=== PATIENT | female | born 1990 | race Caucasian/White ===

== ENCOUNTER 2018-12-30 12:10 | Inpatient (IN) ==
[2018-12-30 13:20] LABS: BILIRUBIN URINE NEGATIVE (NEGATIVE); BLOOD URINE NEGATIVE (NEGATIVE); CLARITY CLEAR (CLEAR); COLOR YELLOW; GLUCOSE URINE NEGATIVE (NEGATIVE); KETONE URINE NEGATIVE (NEGATIVE); LEUKOCYTES URINE NEGATIVE (NEGATIVE); NITRITE URINE NEGATIVE (NEGATIVE); PROTEIN URINE NEGATIVE (NEGATIVE); SP GRAVITY URINE 1.015; UROBILINOGEN URINE NORMAL
[2018-12-30 13:21] LABS: URINE BACTERIA 2+ /HFP; URINE CAST NONE SEEN /LPF; URINE CRYSTAL NONE SEEN /HPF; URINE EPITHELIAL CELLS >10 /HPF (<10); URINE RBC <10 /HPF (<10); URINE SOURCE CLEAN CATCH; URINE WBC <10 /HPF (<10); URINE YEAST NONE SEEN /HPF
[2018-12-30 13:26] LABS: UR AMPHETAMINES QUAL NONE DETECTED (NONE DETECT); UR BARBITUATES QUAL NONE DETECTED (NONE DETECT); UR BENZODIAZEPIN QUAL NONE DETECTED (NONE DETECT); UR CANNABINOIDS QUAL NONE DETECTED (NONE DETECT); UR COCAINE QUAL NONE DETECTED (NONE DETECT); UR METHADONE QUAL NONE DETECTED (NONE DETECT); UR METHAMPHETAMINE QUAL NONE DETECTED (NONE DETECT); UR OPIATES QUAL NONE DETECTED (NONE DETECT); UR OXYCODONE QUAL PRESUMPTIVE POSITIVE (NONE DETECT); UR PCP QUAL NONE DETECTED (NONE DETECT); UR PROPOXYPHENE QUAL NONE DETECTED (NONE DETECT); UR TCA QUAL NONE DETECTED (NONE DETECT)
[2018-12-30 13:39] LABS: BASO# 0.02 X1000 (0.0-0.2); BASO% 0.1 % (0.0-0.8); EOS# 0.07 X1000 (0.0-0.7); EOS% 0.5 % (0.0-10.0); HEMATOCRIT 28.2 % (37.0-47.0); HEMOGLOBIN 8.1 g/dL (12.0-16.0); IMM GRAN# 0.03 X1000 (0.0-0.04); IMM GRAN% 0.2 % (0.0-0.5); LYMPH# 1.19 X1000 (1.2-3.4); MCH 22.1 PG (27-31); MCHC 28.7 g/dL (33-37); MONO# 0.88 X1000 (0.11-0.59); MONO% 5.9 % (1.7-9.3); MPV 9.4 FL (7.4-10.4); NEUT# 12.71 X1000 (1.4-6.5); NEUT% 85.3 % (42.2-75.2); PLT 383 X1000 (130-400); RBC 3.66 XMIL (4.2-5.4); RDW 14.2 % (11.5-14.5)
[2018-12-30 13:46] LABS: INR 1.06; PROTIME 14.3 Seconds (11.0-16.0)
[2018-12-30 13:47] LABS: PTT 35.8 Seconds (22.3-41.8)
--- NOTE | 2018-12-30 13:53 | Diag Imaging Result Doc PS360 ---
EXAM: CHEST-1 VIEW HISTORY: sepsis alert TECHNIQUE: Single view. COMPARISON: 09/22/2010 FINDINGS: The cardiomediastinal silhouette is within normal limits. The pulmonary vasculature is not congested. No infiltrate, effusion, or pneumothorax is appreciated. IMPRESSION: No acute cardiopulmonary abnormality is identified. Electronically signed by Prudence Kan 12/30/2018 1:51 PM
[2018-12-30 14:06] LABS: AGAP 14; ALBUMIN 3.6 g/dL (3.5-5.0); ALKALINE PHOSPHATASE 69 U/L (32-104); BUN 7 mg/dL (8-22); CHLORIDE 100 mmol/L (98-107); CK PROFILE 23 U/L (24-173); COSMO 272; CREATININE 0.4 mg/dL (0.5-0.9); ESTIMATED GFR > 60; GLUCOSE 102 mg/dL (70-104); GOT 9 U/L (10-30); GPT 8 U/L (10-36); SODIUM 137 mmol/L (136-145); TCO2 24 mmol/L (25-35); TOTAL PROTEIN 7.2 g/dL (6.3-8.3)
[2018-12-30 14:22] LABS: BANDS 1 % (0-1); LYMPHS 12 % (21-51); MONO 2 % (1-9); SEGS 85 % (42-75)
[2018-12-30 14:23] LABS: ANISOCYTOSIS 1+; MICROCYTOSIS 1+
[2018-12-30] MEDS ORDERED: VANCOMYCIN IV PER PHARMACY MISC SCH (15:00)
[2018-12-30] MEDS ORDERED: NS 1,000 ML IV SCH (15:00)
[2018-12-30] MEDS ORDERED: ZOSYN 3.375 GM in NS 50 ML IV SCH (15:00)
[2018-12-30] MEDS ORDERED: XYLOCAINE-MPF 1% INJ ONE (15:09)
[2018-12-30] MEDS ORDERED: XYLOCAINE-MPF 1% 5 ML ONE (15:09)
[2018-12-30] MEDS ORDERED: NORCO-10 PO ONE (15:46)
--- NOTE | 2018-12-30 15:49 | PROVIDER DOCUMENTATION ---
This chart was entered by Patricia aPvon Scribe, acting as scribe for Elliott Cano MD. HPI-Rash/Wound/ReCheck - General Chief Complaint: Sores/Lesions Stated Complaint: SORES ALL OVER BODY Time Seen by Provider: 12/30/18 12:41 Source: patient, family (mother) Allergies/Adverse Reactions: Allergies Allergy/AdvReac Type Severity Reaction Status Date / Time morphine Allergy Severe SWELLING Verified 09/10/13 00:09 of face, can't breathe Home Medications: Home Medication List Medication Instructions Recorded Confirmed Last Taken Type Clonazepam 1 mg PO TID 11/20/13 01/18/14 11/20/13 14:00 History Clindamycin [Cleocin] 150 mg PO Q6HR #20 capsule 01/18/14 Unknown Rx Doxycycline 100 mg BID 01/18/14 01/18/14 Unknown History Hydrocodone/Acetaminophen [[place] 1 each PO Q6H PRN #20 tablet 01/18/14 Unknown Rx 5-325 Tablet] - History of Present Illness-Dermatology Nature of Presenting Problem: 28 yowf presents to the ed with her mother. pt has hx of heroin addiction but has been clean for 2 years. pt has multiple sores on BUE and back. pt has swelling noted to BUE. pt sts wounds starts as a pimple then pt sts she pokes wound with a needle to drain and then wounds become infected. pt as had 100lb weight loss in 2 years and is ill appearing Location: reports: upper extremity Quality: reports: painful Severity: reports: moderate Onset/Duration: reports: unsure Timing: reports: still present, getting worse Context/Associated Symptoms: reports: lesion, tender area Exposure: reports: unknown cause Modifying Factors: worse with: scratching, other (picking) Locality of Occurance: Home Similar Symptoms Previously?: Yes Recently seen or treated by another doctor?: No Review of Systems - Adult - REVIEW OF SYSTEMS - ADULT Constitutional: reports: see HPI, weight loss. denies: chills, fever Eyes: reports: no symptoms reported Ears, Nose, Mouth & Throat: reports: no symptoms reported Cardiovascular: denies: chest pain, palpitations Respiratory: denies: cough, shortness of breath, wheezing Gastrointestinal: reports: see HPI, poor appetite. denies: diarrhea, nausea, vomiting Genitourinary: reports: no symptoms reported Musculoskeletal: reports: no symptoms reported Integumentary: reports: see HPI, hair loss, skin sores/ulcer Neurological: reports: no symptoms reported Psychiatric: reports: see HPI, anxiety, depression, insomnia Endocrine: reports: no symptoms reported Hematologic/Lymphatic: reports: no symptoms reported Allergic/Immunologic: reports: no symptoms reported All Other Systems: Reviewed and Negative Past History - Adult - PAST MEDICAL HISTORY-ADULT Review of Records: reports: Old Records Reviewed, Nursing Assessment Review, Medications Reviewed, Social history reviewed & non-contributory. Major Childhood Illnesses: reports: denies history Cardiovascular: reports: denies history Respiratory: reports: denies history Gastrointestinal: reports: GERD Obstetrical/Gynecological: reports: denies history Genitourinary: reports: kidney disease (Poss: uretheral reflux) Musculoskeletal: reports: denies history Hand Dominance: Right Handed Neurological: reports: denies history Psychiatric: reports: anxiety, depression Endocrine/Immune: reports: denies history Other Conditions: reports: denies history - PRIOR SURGERIES/PROCEDURES Surgical/Procedure History: reports: - IMMUNIZATION STATUS Childhood Immunizations: UTD Flu Vaccine: See Nurse Assessment - FAMILY HISTORY Family History: reviewed, not pertinent - SOCIAL HISTORY Smoking: quit less than 1 year Substance Use: none presently/history of abuse (heroin) Living Situation: family Physical Exam-General - PHYSICAL EXAM-ADULT Initial Vital Signs Reviewed: Yes - CONSTITUTIONAL General Appearance: alert, mild distress, thin, anxious. negative: appears well (ill appearing) - EYES Eyes: PERRL/EOMI, pale conjunctivae - HEAD, EARS, NOSE, MOUTH & THROAT HENMT: dental decay. negative: moist mucous membranes (dry oral and dry lips) - NECK Neck: non-tender, full range of motion, normal inspection - RESPIRATORY Respiratory: chest non-tender, lungs clear, normal breath sounds - CARDIOVASCULAR Cardiovascular: normal peripheral pulses, tachycardia (116) - CHEST (BREASTS) Chest/Breast: deferred - GASTROINTESTINAL (ABDOMEN) Abdominal Exam: normal bowel sounds, non tender, soft - GENITOURINARY Female Genitalia/Pelvic Exam: deferred Rectal Exam: deferred Hemoccult Exam: deferred - LYMPHATIC Lymphatic: no adenopathy - MUSCULOSKELETAL Back Exam: no CVA tenderness, no vertebral tenderness, other (redness noted to upper back on spine) Extremity: normal range of motion, normal capillary refill, pelvis stable, swelling (BUE with multiple lesions and redness from picking sores). negative: normal inspection - SKIN Integumentary: warm/dry, erythema (seen around lesions), pallor, swelling (BUE), tenderness, warm (lesions), other (lesions) - PSYCHIATRIC Psych/Mental Status: oriented x 3, anxious, tearful Progress - PLAN OF CARE/RESULTS Progress/Plan/Lab Results: Vital Signs - 8 hr 12/30/18 12:32 12/30/18 15:04 12/30/18 15:38 Temperature 98 F 100.1 F H Pulse Rate 116 H 86 115 H Respiratory Rate 22 20 18 Blood Pressure 146/78 108/64 O2 Sat by Pulse Oximetry 100 98 96 Bedside Urine ED: Urine Bedside Start: 12/30/18 12:54 Freq: ORDERED Status: Active Protocol: Activity Type Activity Date Activity User E-Sign Co-Sign Detail Recorded Client Recorded Date Recorded By Document 12/30/18 12:55 [id number] 12/30/18 12:55 [id number] 12/30/18 12:55 Point of Care [Bedside Point of Care] -Lot # [id number] - Results Negative -Control Line Visible? Yes Laboratory Results - last 24 hr 12/30/18 12/30/18 12/30/18 12:54 12:54 13:20 WBC 14.90 H RBC 3.66 L Hgb 8.1 L Hct 28.2 L MCV 77.0 L MCH 22.1 L MCHC 28.7 L RDW Std Deviation 14.2 Plt Count 383 MPV 9.4 Immature Gran % (Auto) 0.2 Neut % (Auto) 85.3 H Lymph % (Auto) 8.0 L [place] % (Auto) 5.9 Eos % (Auto) 0.5 Baso % (Auto) 0.1 Immature Gran # (Auto) 0.03 Neut # (Auto) 12.71 H Lymph # (Auto) 1.19 L [place] # (Auto) 0.88 H Eos # (Auto) 0.07 Baso # (Auto) 0.02 Segmented Neutrophils 85 H Band Neutrophils 1 Lymphocytes 12 L Monocytes 2 Anisocytosis 1+ Microcytosis 1+ PT INR PTT (Actin FS) Sodium Potassium Chloride Carbon Dioxide Anion Gap BUN Creatinine Estimated GFR/1.73 m2 BUN/Creatinine Ratio Glucose Calculated Osmolality Calcium Total Bilirubin AST ALT Alkaline Phosphatase Creatine Kinase Troponin T Total Protein Albumin Globulin Albumin/Globulin Ratio Plasma Lactate Urine Source CLEAN CATCH Urine Color YELLOW Urine Clarity CLEAR Urine pH 7.0 Ur Specific [place] 1.015 Urine Protein NEGATIVE Urine Ketones NEGATIVE Urine Blood NEGATIVE Urine Nitrite NEGATIVE Urine Bilirubin NEGATIVE Urine Urobilinogen NORMAL Urine Microscopic RBC <10 Urine WBC NEGATIVE Urine Microscopic WBC <10 Ur Epithelial Cells >10 A Urine Crystals NONE SEEN Urine Bacteria 2+ Urine Casts NONE SEEN Urine Yeast NONE SEEN Urine Glucose NEGATIVE Urine Opiates Screen NONE DETECTED Ur Oxycodone Screen PRESUMPTIVE POSITIVE A Urine Methadone Screen NONE DETECTED U Propoxyphene Qual NONE DETECTED Ur Barbituates Screen NONE DETECTED Ur Tricyclics Screen NONE DETECTED Ur Phencyclidine Scrn NONE DETECTED Ur Amphetamines Screen NONE DETECTED U Methamphetamines Scrn NONE DETECTED U Benzodiazepines Scrn NONE DETECTED Urine Cocaine Screen NONE DETECTED U Cannabinoids Screen NONE DETECTED 12/30/18 12/30/18 12/30/18 13:20 13:20 13:20 WBC RBC Hgb Hct MCV MCH MCHC RDW Std Deviation Plt Count MPV Immature Gran % (Auto) Neut % (Auto) Lymph % (Auto) [place] % (Auto) Eos % (Auto) Baso % (Auto) Immature Gran # (Auto) Neut # (Auto) Lymph # (Auto) [place] # (Auto) Eos # (Auto) Baso # (Auto) Segmented Neutrophils Band Neutrophils Lymphocytes Monocytes Anisocytosis Microcytosis PT 14.3 INR 1.06 PTT (Actin FS) 35.8 Sodium 137 Potassium 4.0 Chloride 100 Carbon Dioxide 24 L Anion Gap 14 BUN 7 L Creatinine 0.4 L Estimated GFR/1.73 m2 > 60 BUN/Creatinine Ratio 18 Glucose 102 Calculated Osmolality 272 Calcium 9.0 Total Bilirubin 0.30 AST 9 L ALT 8 L Alkaline Phosphatase 69 Creatine Kinase 23 L Troponin T Total Protein 7.2 Albumin 3.6 Globulin 4.0 Albumin/Globulin Ratio 1.0 Plasma Lactate 1.0 Urine Source Urine Color Urine Clarity Urine pH Ur Specific [place] Urine Protein Urine Ketones Urine Blood Urine Nitrite Urine Bilirubin Urine Urobilinogen Urine Microscopic RBC Urine WBC Urine Microscopic WBC Ur Epithelial Cells Urine Crystals Urine Bacteria Urine Casts Urine Yeast Urine Glucose Urine Opiates Screen Ur Oxycodone Screen Urine Methadone Screen U Propoxyphene Qual Ur Barbituates Screen Ur Tricyclics Screen Ur Phencyclidine Scrn Ur Amphetamines Screen U Methamphetamines Scrn U Benzodiazepines Scrn Urine Cocaine Screen U Cannabinoids Screen 12/30/18 13:20 WBC RBC Hgb Hct MCV MCH MCHC RDW Std Deviation Plt Count MPV Immature Gran % (Auto) Neut % (Auto) Lymph % (Auto) [place] % (Auto) Eos % (Auto) Baso % (Auto) Immature Gran # (Auto) Neut # (Auto) Lymph # (Auto) [place] # (Auto) Eos # (Auto) Baso # (Auto) Segmented Neutrophils Band Neutrophils Lymphocytes Monocytes Anisocytosis Microcytosis PT INR PTT (Actin FS) Sodium Potassium Chloride Carbon Dioxide Anion Gap BUN Creatinine Estimated GFR/1.73 m2 BUN/Creatinine Ratio Glucose Calculated Osmolality Calcium Total Bilirubin AST ALT Alkaline Phosphatase Creatine Kinase Troponin T < 0.010 Total Protein Albumin Globulin Albumin/Globulin Ratio Plasma Lactate Urine Source Urine Color Urine Clarity Urine pH Ur Specific [place] Urine Protein Urine Ketones Urine Blood Urine Nitrite Urine Bilirubin Urine Urobilinogen Urine Microscopic RBC Urine WBC Urine Microscopic WBC Ur Epithelial Cells Urine Crystals Urine Bacteria Urine Casts Urine Yeast Urine Glucose Urine Opiates Screen Ur Oxycodone Screen Urine Methadone Screen U Propoxyphene Qual Ur Barbituates Screen Ur Tricyclics Screen Ur Phencyclidine Scrn Ur Amphetamines Screen U Methamphetamines Scrn U Benzodiazepines Scrn Urine Cocaine Screen U Cannabinoids Screen Orders Category Date Time Status Admit - [facility] Routine [id number] 12/30/18 14:58 Active Activity - Up with Assistance ORDERED Care 12/30/18 14:58 Active Cardiac Monitoring DIRECTED Care 12/30/18 12:39 Completed ED: Urine Bedside ORDERED Care 12/30/18 12:54 Active IV Insertion ORDERED Care 12/30/18 12:39 Completed Intake and Output-Strict ORDERED Care 12/30/18 14:58 Active Notify MD of + Sepsis Screen NOW Care 12/30/18 12:39 Completed Notify Physician As Ordered Care 12/30/18 12:39 Completed Vital Signs Order Q 8-HR ASSESS Care 12/30/18 14:58 Active Z-Document. for Tele Applied ORDERED Care 12/30/18 14:59 Active Regular Diet Diet 12/30/18 14:59 Active CHEST-1 VIEW [RAD] Stat Exams 12/30/18 12:39 Completed BASIC METABOLIC PANEL [CHEM] Routine Lab 12/31/18 06:00 Ordered BLOOD CULTURE [BLDCUL] Stat Lab 12/30/18 12:49 Ordered CBC WITH DIFF [HEME] Routine Lab 12/31/18 06:00 Ordered CBC WITH DIFF [HEME] Stat Lab 12/30/18 13:20 Completed CK PROFILE [SP CHEM] Stat Lab 12/30/18 13:20 Completed COMPREHENSIVE METABOLIC PANEL [CHEM] Stat Lab 12/30/18 13:20 Completed LACTATE, PLASMA [CHEM] Lab 12/30/18 15:45 Uncollected LACTATE, PLASMA [CHEM] Lab 12/30/18 18:45 Uncollected LACTATE, PLASMA [CHEM] Q3H Lab 12/30/18 13:20 Completed PROTIME WITH INR [COAG] Stat Lab 12/30/18 13:20 Completed PTT [COAG] Stat Lab 12/30/18 13:20 Completed TROPONIN T Stat Lab 12/30/18 13:[address] W/POSS RFLX CULT [URINALYSIS] Stat Lab 12/30/18 12:54 Completed URINE CULTURE [RM] Routine Lab 12/30/18 13:22 Ordered URINE DRUG SCREEN PL Stat Lab 12/30/18 12:54 Completed WOUND CULTURE INC GRAM STAIN [RM] Routine Lab 12/30/18 15:24 Ordered 0.9% Sodium Chloride Inj [Ns] 1,000 ml Med 12/30/18 15:00 Active IV 75 mls/hr Lidocaine 1% Pf [Xylocaine-Mpf 1%] Med 12/30/18 15:09 Discontinued 5 ml INJ NOW ONE Lidocaine 1% Pf [Xylocaine-Mpf 1%] 5 ml Med 12/30/18 15:09 Discontinued .ROUTE As directed Omeprazole [Prilosec] Med 12/31/18 07:00 Active 40 mg PO DAILY@0700 Pharmacy Order [Vancomycin IV Per Pharmacy] Med 12/30/18 15:00 Active 1 each MISC DIRECTED Piperacillin/Tazobactam [Zosyn] 3.375 gm Med 12/30/18 15:00 Active 0.9% Sodium Chloride Inj [Ns] 50 ml IV Q6H Vancomycin 1,250 mg Med 12/31/18 05:00 Active 0.9% Sodium Chloride Inj [Ns] 250 ml IV Q12H Vancomycin 1,500 mg Med 12/30/18 16:30 Active 0.9% Sodium Chloride Inj [Ns] 250 ml IV ONCE Oxygen Device Stat Oth 12/30/18 12:39 Active Telemetry [OM.EQ] Routine Oth 12/30/18 14:58 Active Result Diagrams: 12/30/18 13:20 12/30/18 13:20 - REASSESSMENT Reassessment #1 Time Reassessed: 15:04 Status: unchanged - XRAY 1 XRAY: Bilateral XRAY Study: Chest Impression: See EMR Report (EXAM: CHEST-1 VIEW HISTORY: sepsis alert TECHNIQUE: Single view. COMPARISON: 09/22/2010 FINDINGS: The cardiomediastinal silhouette is within normal limits. The pulmonary vasculature is not congested. No infiltrate, effusion, or pneumothorax is appreciated. IMPRESSION: No acute cardiopulmonary abnormality is identified. Electronically signed by Prudence Kan 12/30/2018 1:51 PM 12/30/18 1351 Interpreting Physician: Prudence Kan MD Dictated Date/Time: 12/30/18 1350 cc: Elliott Cano MD; None,PCP) - CONSULTS/PCP/HOSPITALIST Notification #1 *Consult/PCP/Hospitalist*: dr costa hospitalist Time Discussed: 15:04 Reason/Comments: dr costa is at bedside Consult Disposition: Admit Procedures - INCISION & DRAINAGE Site: dorsum rt wrist Prepped with: Hibiclens Blade Size: needle lancet Packing placed?: No Sterile Dressing Applied?: Yes Drainage: Small Amount (5cc pus) Departure - Departure Date of Disposition Decision: 12/30/18 Time of Disposition Decision: 15:05 DIAGNOSIS: Protein-calorie malnutrition, moderate, Direct Care Worker's nodules Disposition: ADMITTED INPATIENT 09 Certified Medical Emergency: Emergent Condition: Stable Referrals and Follow-Ups: None,PCP [Primary Care Provider] - - Critical Care Note This patient required my direct & personal management of CC.: Yes Total Time (mins): 36 Critical Care Statement: This patient required my direct personal management to treat or rule out processes, the absence of which, could potentiallly result in sudden, clinically significant life or limb threatening deterioration. Attestation - Physician/ TERE Attestation Patient care was provided by Advanced Practice Provider:: No The physician spent face to face time with patient:: Yes Advanced Practice Provider documentation review:: Supervising physician onsite and consulted in the evaluation and care of this patient. The physician did have a face to face encounter with the patient. This chart was documented by the indicated scribe, (Patricia Pavon Scribe) and accurately reflects the services I performed and decisions made by me, Elliott Cano MD, as attested by the provider's signature.
[2018-12-30] MEDS ORDERED: VANCOMYCIN 1,500 MG in NS 250 ML IV ONE (16:30)
--- NOTE | 2018-12-30 17:12 | HISTORY AND PHYSICAL ---
CHIEF COMPLAINT: Weight loss, lower extremity edema and abscesses noted to bilateral arms and right hand. Painful lesions to arms. HISTORY OF PRESENT ILLNESS: This is a 28-year-old female with a prior history of IV drug abuse with heroin as her drug of choice, chronic skin picking, who presents to the emergency room with her mother complaining of multiple lesions to bilateral arms, her right hand. The patient denies any recent IV drug use. The patient and mother both state that the patient has picked at her skin since she was a young child and the mother has noticed that she has been picking at these areas to bilateral arms over the last two weeks with the area becoming edematous and red and warm over the last three to four days. She denies any fevers or chills. She denies any drainage from these areas. PAST MEDICAL HISTORY: IV drug abuse. Ureter reflux. PAST SURGICAL HISTORY: . SOCIAL HISTORY: She denies any recent IV drug use. She states it has been greater than three years. She denies any alcohol use. She does smoke about a pack a day. ALLERGIES: Morphine, which causes swelling of the face and cannot breathe. HOME MEDICATIONS: None. REVIEW OF SYSTEMS: Discussed with the patient with pertinent positives stated in the HPI. She denied any syncope, dizziness, chest pain, palpitations, any cough, fever, chills, night sweats, any nausea, vomiting, diarrhea, constipation, black or bloody vomitus or stools, any hematuria, dysuria, frequency, urgency. PHYSICAL EXAMINATION: GENERAL: This is a 28-year-old female who is lying on the stretcher in the emergency room in no distress. VITAL SIGNS: Blood pressure is 114/78 with a heart rate of 100. Respirations are 20. Temperature is 98 degrees with room air saturations 100%. EYES: Pupils equal, round, react to light. EOMs are intact. Sclerae are anicteric. HEENT: Head is normocephalic, atraumatic. Mucous membranes are moist. NECK: Supple with trachea midline. CARDIOVASCULAR: Regular rate and rhythm. S1 and S2 are appreciated. No murmur. PULMONARY: Breath sounds are clear with no increased work of breathing noted. Chest rises and falls symmetrically with respiration. Chest wall is nontender to palpation. GASTROINTESTINAL: Abdomen is soft, nontender, nondistended with bowel sounds in all four quadrants. GENITOURINARY: No CVA nor suprapubic tenderness. NEUROLOGIC: She is alert and oriented x3. SKIN: Warm and dry with nodules noted to both arms and right hand that are erythematous and warm. LABS: WBC is 14.9 with hemoglobin 8.1, hematocrit 28.2, and platelets 383,000. Sodium 137, potassium 4, BUN 7, creatinine 0.4 with a glucose of 102. Urinalysis is essentially negative. Urine drug screen is presumptive positive for oxycodone. MICROBIOLOGY: Blood cultures are pending. Urine culture is pending. ASSESSMENT AND PLAN: 1. Abscesses to bilateral arms. 2. History of intravenous drug abuse. 3. Moderate protein-calorie malnutrition. 4. Leukocytosis. 5. Anemia. The patient will be admitted to the hospital. She will be placed on telemetry. We will continue with IV hydration and vancomycin dosed per pharmacy and Zosyn. Check a CBC and a CMP in the morning. She underwent I and D in the emergency room. We will monitor for culture results and further antibiotics will be culture driven. Further treatments pending hospital course. Patient was seen with Dr. Mayes and plan was discussed. Dictated by MYLES Perez for Pierre Mayes MD cc: MYLES Perez MD
[2018-12-30] MEDS ORDERED: FLU VACCINE IM ONE (18:59)
--- NOTE | 2018-12-30 19:30 | PROGRESS NOTE ---
DATE: 12/30/2018 SUBJECTIVE/PLAN: The patient presented to the hospital with multiple abscesses on her bilateral upper extremities. She does have a known history of heroin use and abuse, but states she has not been using over the last several years. Bilateral arms are swollen, erythematous, and certainly look like injection site reactions. We are going to attempt to culture one, place her on antibiotics, and will follow. cc: Pierre Mayes MD
[2018-12-31] MEDS ORDERED: VANCOMYCIN 1,250 MG in NS 250 ML IV SCH (05:00)
[2018-12-31] MEDS ORDERED: PRILOSEC PO SCH (07:00)
[2018-12-31] MEDS ORDERED: ZOFRAN IV PRN (08:15)
[2018-12-31] MEDS ORDERED: VANCOMYCIN IV PER PHARMACY MISC SCH (08:15)
[2018-12-31] MEDS ORDERED: SEROQUEL PO PRN (08:15)
[2018-12-31] MEDS ORDERED: TYLENOL PO PRN (08:15)
[2018-12-31 09:15] LABS: BASO# 0.01 X1000 (0.0-0.2); BASO% 0.1 % (0.0-0.8); EOS# 0.02 X1000 (0.0-0.7); EOS% 0.1 % (0.0-10.0); HEMATOCRIT 31.7 % (37.0-47.0); HEMOGLOBIN 9.3 g/dL (12.0-16.0); IMM GRAN# 0.05 X1000 (0.0-0.04); IMM GRAN% 0.4 % (0.0-0.5); LYMPH# 1.23 X1000 (1.2-3.4); LYMPH% 8.6 % (20.5-51.1); MCH 22.2 PG (27-31); MCHC 29.3 g/dL (33-37); MCV 75.8 FL (81-99); MONO# 0.51 X1000 (0.11-0.59); MONO% 3.6 % (1.7-9.3); MPV 9.8 FL (7.4-10.4); NEUT# 12.46 X1000 (1.4-6.5); NEUT% 87.2 % (42.2-75.2); PLT 452 X1000 (130-400); RBC 4.18 XMIL (4.2-5.4); RDW 14.5 % (11.5-14.5); WBC 14.28 X1000 (4.8-10.8)
[2018-12-31 09:48] LABS: AGAP 12; BUN 11 mg/dL (8-22); CALCIUM 9.3 mg/dL (8.8-10.2); CHLORIDE 104 mmol/L (98-107); COSMO 283; CREATININE 0.4 mg/dL (0.5-0.9); ESTIMATED GFR > 60; GLUCOSE 143 mg/dL (70-104); POTASSIUM 3.7 mmol/L (3.5-5.1); SODIUM 141 mmol/L (136-145); TCO2 24 mmol/L (25-35)
[2018-12-31] MEDS: ZOSYN 3.375 GM in NS 50 ML IV SCH ×2 (10:21→18:23)
[2018-12-31] MEDS: VANCOMYCIN 1,250 MG in NS 250 ML IV SCH ×2 (10:22→20:07)
[2018-12-31 11:14] LABS: LYMPHS 15 % (21-51); MONO 3 % (1-9); SEGS 82 % (42-75)
[2018-12-31] MEDS: NORCO-5 PO PRN ×2 (16:12→20:06)
--- NOTE | 2018-12-31 19:59 | PROGRESS NOTE ---
DATE: 12/31/2018 SUBJECTIVE: Patient with no new complaints although she states that she wants to go home. PHYSICAL EXAMINATION: Temp 98.4, pulse 94, respiratory rate 18, BP 143/50.General: Patient is awake. He is in no respiratory distress. HEENT: Normocephalic. Neck: Supple. Cardiovascular: Regular rate. Chest: Clear. Abdomen: Soft, nondistended. Extremities: Moves all extremities. Skin: She has multiple abscesses on the bilateral upper extremities as well as swelling of her bilateral hands. ASSESSMENT: 1. Cellulitis with abscess. 2. History of IV drug abuse. 3. Leukocytosis. 4. Anemia. PLAN: We will continue antibiotics until her culture returns and then we can adjust from there. Discussed with patient that she will likely be in the hospital for 2 or 3 more days. cc: Pierre Mayes MD MTDD
[2019-01-01] MEDS: NORCO-5 PO PRN ×5 (01:25→19:36)
[2019-01-01] MEDS: ZOSYN 3.375 GM in NS 50 ML IV SCH ×4 (01:27→19:39)
[2019-01-01] MEDS: VANCOMYCIN 1,250 MG in NS 250 ML IV SCH (09:52)
[2019-01-01 10:12] LABS: HEMATOCRIT 30.7 % (37.0-47.0); MCH 22.4 PG (27-31); MCHC 29.3 g/dL (33-37); MCV 76.4 FL (81-99); MPV 9.5 FL (7.4-10.4); RBC 4.02 XMIL (4.2-5.4); RDW 14.5 % (11.5-14.5); WBC 11.8 X1000 (4.8-10.8)
[2019-01-01 10:36] LABS: CALCIUM 9.5 mg/dL (8.8-10.2); CREATININE 1.2 mg/dL (0.5-0.9); POTASSIUM 3.7 mmol/L (3.5-5.1)
--- NOTE | 2019-01-01 14:35 | PROGRESS NOTE ---
DATE: 01/01/2019 SUBJECTIVE: Patient with no new complaints. PHYSICAL EXAMINATION: Vital Signs: Reviewed temp 98 degrees, pulse 74, respiratory rate 18, BP 106/58. General: Patient is awake, currently in no respiratory distress. HEENT: Normocephalic. Neck: Supple. Cardiovascular: Regular rate. Chest: Clear. Abdomen: Soft. Skin: She has multiple abscesses on several areas of her upper extremities. ASSESSMENT: 1. Upper extremity abscesses with culture growing Staph aureus. We are going to continue vancomycin. 2. Leukocytosis. PLAN: We will continue antibiotics until we get final culture and sensitivity. cc: Pierre Mayes MD
[2019-01-02] MEDS: NORCO-5 PO PRN ×4 (00:28→16:44)
[2019-01-02 05:23] LABS: HEMATOCRIT 31.3 % (37.0-47.0); HEMOGLOBIN 9.1 g/dL (12.0-16.0); MCH 22.2 PG (27-31); MCHC 29.1 g/dL (33-37); MCV 76.3 FL (81-99); MPV 9.6 FL (7.4-10.4); RBC 4.1 XMIL (4.2-5.4); RDW 14.7 % (11.5-14.5); WBC 11.53 X1000 (4.8-10.8)
[2019-01-02 05:26] LABS: CALCIUM 9.4 mg/dL (8.8-10.2); CREATININE 1.2 mg/dL (0.5-0.9); POTASSIUM 3.6 mmol/L (3.5-5.1)
[2019-01-02] MEDS: ZYVOX PO SCH (20:22)
[2019-01-02] MEDS: AUGMENTIN PO SCH (20:22)
--- NOTE | 2019-01-02 21:56 | PROGRESS NOTE ---
DATE: 01/02/2019 SUBJECTIVE: Patient notes that she is feeling better. She is still having abscesses on both upper extremities, although they have improved. Her swelling in bilateral hands also improved. OBJECTIVE: Vital signs: Temperature 97.3, pulse 71, respiratory rate 18, BP 148/73. General: Patient is in no current respiratory distress. HEENT: Normocephalic. Neck: Supple. Cardiovascular: Regular rate. No murmurs. Chest: Clear and nonlabored. Abdomen: Soft and nondistended. Extremities: Moves all extremities. Skin: Still has several abscesses although much smaller than on admission. Her bilateral hand swelling is also improved. Neurologic: No focal changes. ASSESSMENT: 1. Abscess, bilateral arms. Her cultures are growing Klebsiella but is also growing gram- positive cocci. This has been undetermined at the present time. 2. Leukocytosis, resolved. 3. Anemia. PLAN: We are going to continue patient in the hospital until her culture and sensitivity is fully finished. We are going to start her on Zyvox as well as Augmentin today. She has lost her IV. If she requires IV antibiotics, she certainly will need a PICC line. cc: Pierre Mayes MD
[2019-01-03] MEDS: NORCO-5 PO PRN ×2 (00:26→07:58)
[2019-01-03 06:05] VITALS: BP 113/51
[2019-01-03] MEDS: AUGMENTIN PO SCH (07:59)
[2019-01-03] MEDS: ZYVOX PO SCH (07:59)
--- NOTE | 2019-01-03 13:21 | DISCHARGE SUMMARY ---
ADMISSION DATE: 12/30/2018 DISCHARGE DATE: 01/03/2019 ADDENDUM REPORT CORRECTED DATE OF DISCHARGE: 01/03/2019 MEDICATIONS: She will be going home with are: 1. Ampicillin 500 mg p.o. every 8 hours for a total of 42 doses. 2. Doxycycline 100 mg p.o. twice daily for a total of 28 doses. 3. Ultram 50 mg p.o. every 6 hours p.r.n. MICROBIOLOGY: The organism #1 and this is from the right wrist wound culture, organism #1 is Enterococcus faecalis sensitive to ampicillin, sensitive to penicillin, resistant to Synergy 500, sensitive to Synergy 1000, sensitive to vancomycin. Organism #2 is Staphylococcus aureus, it is actually ORSA or MRSA sensitive to clindamycin, sensitive to erythromycin, sensitive to gentamicin, negative for inducible clindamycin resistance, sensitive to tetracycline, sensitive to Bactrim, sensitive to vancomycin, resistant to oxacillin, resistant to penicillin. DISCHARGE DIAGNOSIS: She has methicillin-resistant Staphylococcus aureus of the right wrist. She will be going home with the oral antibiotics and she will need to have a followup outpatient with Dr. Mono Thomas, so you do have an appointment on Wednesday, 01/17, with Dr. Thomas at 10:30 in the morning, so you will need to make that. She will be discharged home. Dictated by MYLES Beckford for Mayo Jackson MD Addendum: Patient seen and examined by myself. Agree with MYLES note. It reflects my assessment and plan. Patient is being discharged from hospital in stable condition. Will be seen by Dr. Thomas as scheduled. cc: MYLES Beckford MD [facility]
--- NOTE | 2019-01-03 14:15 | DISCHARGE SUMMARY ---
ADMISSION DATE: 12/30/2018 DISCHARGE DATE: 01/02/2019 ADMISSION DIAGNOSES: 1. Abscesses to bilateral arms. 2. History of intravenous drug abuse. 3. Moderate protein calorie malnutrition. 4. Leukocytosis. 5. Anemia. DISCHARGE DIAGNOSES: 1. Upper extremity abscesses with culture growing Staph aureus. 2. Leukocytosis. 3. Right wrist abscess shows enterococcus faecalis which is gram-positive cocci. She has been on vancomycin, with resistance is to synergy. PHYSICIAN CONSULTATION: None. SURGERIES AND PROCEDURES: None. HOSPITAL COURSE: Ms. Fallon Varghese is a 28-year-old female with a history of IV drug abuse using heroin, chronic skin picking. Presents today to the emergency department at [facility] with her mother complaining of multiple lesions to bilateral arms and her right hand. She denied any recent IV drug use, but had been significantly picking at her skin and has so since she was a young child. Apparently, she has been picking at those areas for at least 2 weeks, becoming edematous, red, warm over the last 4 days prior to admission. Denied fevers or chills. Culture was obtained from the right wrist. It was positive for Enterococcus faecalis. She has been on vancomycin while she is here with improvement of the infection. Her white blood cell count dropped from 14 down to 11, and she will either go home with a PICC getting IV vancomycin or she will have an anti oral antibiotic. DISCHARGE VITAL SIGNS: Temperature 98.0 degrees, heart rate 81, respiratory rate 16, blood pressure 107/52, O2 saturation 100% on room air. DISCHARGE LAB DATA: White blood cells 11,000 hemoglobin 9, hematocrit 31, platelet count 484,000. Sodium 145, potassium 3.6, BUN 14, creatinine is 1.2, glucose 101, calcium 9.4. DISCHARGE MEDICATIONS: Pending. DISCHARGE INSTRUCTIONS: Depending on if she has PICC line or not. Either way she will need to take her antibiotics as prescribed. She will need to have a primary care provider that she can follow up with. Any other signs or symptoms of infection, worsening of swelling or purulent drainage from the wounds, she will need to seek medical attention. She is also instructed to stop picking at these lesions. DISCHARGE DISPOSITION: Home. DISCHARGE DIET: Regular. DISCHARGE ACTIVITY: As tolerated. Dictated by MYLES Beckford for Pierre Mayes MD cc: MYLES Beckford MD
== END 2019-01-03 13:13 | disposition home or self-care (01) | DRG 603 ==
LOC: P.ED 12:10 → P.MEDSURG 18:23 → SUATTDRO 18:23
PROVIDERS: ATTEND Internal Medicine